=== PATIENT | female | born 1945 | race Caucasian/White ===

== ENCOUNTER 2018-05-16 13:24 | Outpatient (CLI) | payer MEDICARE | END 2018-05-16 13:25 | disposition home or self-care (01) | LOC: BICMAMMO 13:24 | PROVIDERS: ATTEND Nurse Practitioner Family | DX: Z13.820 Encounter for screening for osteoporosis (principal); M25.551 Pain in right hip; M25.561 Pain in right knee; M16.11 Unilateral primary osteoarthritis, right hip; M17.11 Unilateral primary osteoarthritis, right knee | CPT/HCPCS: 77080 ==